=== PATIENT | male | born 1980 | race Caucasian/White ===

== ENCOUNTER 2021-01-15 01:10 | Emergency (ER) | payer SELFPAY ==
[~2021-01-15] VITALS: Ht 157.5 cm; Wt 66.7 kg
[2021-01-15 01:17] VITALS: BP 137/86
--- NOTE | 2021-01-15 01:17 | NUR ---
TO BED AMBULATORY
--- NOTE | 2021-01-15 01:20 | NUR ---
PT IS A 40 Y.O. MALE BIB SELF CC NECK/SHOULDER PAIN 05/06. PT STATES THE PAIN GETS WORSE WITH MOVEMENT AND GETS BETTER WITH SIDE LYING POSITION. PT STATES THE PAIN ACHING IN CHARACTERISTIC. DENIES INJURY. 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 PAIN HAS BEEN OCCURRING SINCE 2099. PT TOOK TYLENOL 500 MG WITH NO PAIN RELIEF. NO SOB OR LABORED BREATHING. DENIES ANY ALLERGIES. DENIES ANY PMH.
[2021-01-15] MEDS ORDERED: ACETAMINOPHEN EXTRA STRENGTH 500 MG TAB PO ONE (02:00)
[2021-01-15] MEDS ORDERED: CYCLOBENZAPRINE 10 MG TAB PO ONE (02:00)
[2021-01-15] MEDS ORDERED: IBUPROFEN 600 MG TAB PO ONE (02:00)
[2021-01-15] MEDS ORDERED: ACET-10509 PO (02:23)
[2021-01-15] MEDS ORDERED: IBUP-2213 PO (02:23)
--- NOTE | 2021-01-15 02:40 | NUR ---
PT IS RESTING IN SUPINE POSITION. PT STATES PAIN HAS DECREASED WITH MEDICATION. PT IS STABLE.
--- NOTE | 2021-01-15 02:48 | NUR ---
PT discharged with v/s stable. Written and verbal after care instructions given and explained. Patient alert, oriented and verbalized understanding of instructions. Ambulatory with steady gait. All questions addressed prior to discharge. ID band removed. Patient advised to follow up with PMD. Rx of MOTRIN AND TYLENOL given. Patient educated on indication of medication including possible reaction and side effects. Opportunity to ask questions provided and answered.
[2021-01-15 02:49] VITALS: BP 137/86
== END 2021-01-15 02:49 | disposition home or self-care (01) ==
LOC: MED 01:10
DX: M54.6 Pain in thoracic spine (principal); Z79.899 Other long term (current) drug therapy
CPT/HCPCS: 99284